=== PATIENT | female | born 1990 | race Caucasian/White ===

== ENCOUNTER 2017-10-06 08:07 | Emergency (ER) | payer OTHER ==
[~2017-10-06] VITALS: Ht 144.8 cm; Wt 59.0 kg
[2017-10-06] MEDS ORDERED: IBUP-1096 PO (08:22)
[2017-10-06 08:32] LABS: *BILIRUBIN,URIN NEGATIVE (NEGATIVE); *BLOOD, URINE Trace-intact (NEGATIVE); *CLARITY,URINE SLIGHTLY CLOUDY (CLEAR); *COLOR,URINE YELLOW (YELLOW); *KETONES,URINE NEGATIVE (NEGATIVE); *PROTEIN,URINE NEGATIVE (NEGATIVE); *UROBILINOGEN,URINE 0.2 E.U./dl (NORMAL); LEUKOCYTE ESTERASE ,URINE 3+ (NEGATIVE); NITRITE, URINE NEGATIVE (NEGATIVE); PH,URINE 5.5 (5.0-8.0); UGLUCOSE NEGATIVE (NEGATIVE)
[2017-10-06 08:37] LABS: BACTERIA,URINE FEW /HPF (NONE SEEN); SQUAMOUS EPITHELIAL CELL,UR MANY /HPF (NONE SEEN)
--- NOTE | 2017-10-06 08:41 | NUR ---
DIMPLE OBRIEN AT THE BEDSIDE FOR MSE.
[2017-10-06 08:59] LABS: BASOPHILS # (AUTO) 0.1 K/uL (0.0-8.0); BASOPHILS % (AUTO) 1.2 % (0.0-2.0); EOSINOPHILS % (AUTO) 0.7 % (0.0-7.0); HEMATOCRIT 37.4 % (31.2-41.9); HEMOGLOBIN 12.8 g/dL (10.9-14.3); MEAN CORPUSCULAR HEMOGLOBIN 30.9 uug (24.7-32.8); MEAN CORPUSCULAR HGB CONC 34 g/dL (32.3-35.6); MEAN CORPUSCULAR VOLUME 90.8 fL (75.5-95.3); MONOCYTES # (AUTO) 0.5 K/uL (2.0-10.0); MONOCYTES % (AUTO) 7.9 % (0.0-11.0); NEUTROPHILS # (AUTO) 3.2 K/uL (1.8-8.9); NEUTROPHILS % (AUTO) 55.2 % (38.5-71.5); PLATELET COUNT (AUTO) 234 K/uL (179-408); RED BLOOD CELL COUNT(AUTO) 4.12 MIL/uL (3.63-4.92); WHITE BLOOD COUNT (AUTO) 5.8 K/uL (3.8-11.8)
[2017-10-06 09:01] LABS: *URINE HCG, QUAL NEGATIVE (NEGATIVE)
[2017-10-06 09:14] LABS: BILIRUBIN,DIRECT 0.1 mg/dL (0.0-0.2); BILIRUBIN,TOTAL 0.4 mg/dL (0.2-1.0); CREATININE 0.6 mg/dL (0.6-1.3); POTASSIUM 3.8 mmol/L (3.5-5.1); TOTAL PROTEIN, SERUM 6.6 g/dL (6.4-8.2)
[2017-10-06] MEDS ORDERED: MAG HYDROX/AL HYDROX/SIMETH 30 ML LIQUID UDC PO ONE (09:15)
[2017-10-06] MEDS ORDERED: LIDOCAINE VISCUS 2% 15 ML UDC MM ONE (09:15)
[2017-10-06] MEDS ORDERED: MAG HYDROX/AL HYDROX/SIMETH 30 ML LIQUID UDC ONE (09:18)
[2017-10-06] MEDS ORDERED: LIDOCAINE VISCUS 2% 15 ML UDC ONE (09:18)
--- NOTE | 2017-10-06 09:35 | NUR ---
Pt resting in bed, speaking on the phone, NAD noted.
[2017-10-06] MEDS ORDERED: CEPHALEXIN MONOHYDRATE 500 MG CAPSULE PO ONE (10:15)
[2017-10-06] MEDS ORDERED: CEPHALEXIN MONOHYDRATE 500 MG CAPSULE ONE (10:18)
--- NOTE | 2017-10-06 10:35 | NUR ---
Pt able to tolorate PO intake. Denies N/V, pain.
[2017-10-06 10:53] VITALS: BP 120/82
--- NOTE | 2017-10-06 10:54 | NUR ---
Patient discharged to home in stable conditon. Written and verbal after care instructions given. Patient verbalizes understanding of instructions.
== END 2017-10-06 10:54 | disposition home or self-care (01) ==
LOC: ER 08:07
DX: K80.20 Calculus of gallbladder without cholecystitis without obstruction (principal); N39.0 Urinary tract infection, site not specified; Z88.5 Allergy status to narcotic agent
CPT/HCPCS: 36415; 83690; 84703; 85025; A4663

== ENCOUNTER 2017-10-12 07:05 | Inpatient (IN) | payer OTHER ==
[~2017-10-12] VITALS: Ht 157.5 cm; Wt 59.0 kg
[~2017-10-12 07:05] MED LIST: IBUP-1096 PO
[2017-10-12] MEDS ORDERED: IV NORMAL SALINE 500 ML BAG IV ONE (07:15)
[2017-10-12] MEDS ORDERED: ONDANSETRON 4 MG/2 ML VIAL IV ONE (07:15)
[2017-10-12] MEDS ORDERED: PIPERACILLIN SODIUM/TAZOBACTAM 3.375 G in IV DEXTROSE 5% 50 ML IV ONE (07:15)
[2017-10-12] MEDS ORDERED: PIPERACILLIN/TAZOBACTAM/D5W 50 ML IV ONE (07:51)
[2017-10-12] MEDS ORDERED: ONDANSETRON 4 MG/2 ML VIAL ONE (07:51)
[2017-10-12 08:04] LABS: BASOPHILS % (AUTO) 0.5 % (0.0-2.0); EOSINOPHILS % (AUTO) 0.8 % (0.0-7.0); HEMATOCRIT 39.4 % (31.2-41.9); HEMOGLOBIN 13.3 g/dL (10.9-14.3); LYMPHOCYTES # (AUTO) 2.2 K/uL (20.0-40.0); LYMPHOCYTES % (AUTO) 33.4 % (20.5-51.5); MEAN CORPUSCULAR HEMOGLOBIN 30.6 uug (24.7-32.8); MEAN CORPUSCULAR HGB CONC 34 g/dL (32.3-35.6); MEAN CORPUSCULAR VOLUME 90.9 fL (75.5-95.3); MONOCYTES # (AUTO) 0.5 K/uL (2.0-10.0); MONOCYTES % (AUTO) 7.6 % (0.0-11.0); NEUTROPHILS # (AUTO) 3.8 K/uL (1.8-8.9); NEUTROPHILS % (AUTO) 57.7 % (38.5-71.5); PLATELET COUNT (AUTO) 258 K/uL (179-408); RED BLOOD CELL COUNT(AUTO) 4.34 MIL/uL (3.63-4.92); WHITE BLOOD COUNT (AUTO) 6.6 K/uL (3.8-11.8)
[2017-10-12 08:05] LABS: *BILIRUBIN,URIN NEGATIVE (NEGATIVE); *BLOOD, URINE NEGATIVE (NEGATIVE); *CLARITY,URINE CLEAR (CLEAR); *COLOR,URINE YELLOW (YELLOW); *KETONES,URINE NEGATIVE (NEGATIVE); *PROTEIN,URINE NEGATIVE (NEGATIVE); *UROBILINOGEN,URINE 0.2 E.U./dl (NORMAL); LEUKOCYTE ESTERASE ,URINE 1+ (NEGATIVE); NITRITE, URINE NEGATIVE (NEGATIVE); PH,URINE 7.5 (5.0-8.0); UGLUCOSE NEGATIVE (NEGATIVE)
[2017-10-12 08:09] LABS: BACTERIA,URINE FEW /HPF (NONE SEEN); SQUAMOUS EPITHELIAL CELL,UR FEW /HPF (NONE SEEN)
[2017-10-12 08:11] LABS: CARBON DIOXIDE 30 mmol/L (21-32); CHLORIDE 104 mmol/L (98-107); CREATININE 0.5 mg/dL (0.6-1.3); GLUCOSE 99 mg/dL (74-106); POTASSIUM 3.4 mmol/L (3.5-5.1); UREA NITROGEN, BLOOD 15 mg/dL (7-18)
[2017-10-12 08:17] LABS: ALANINE AMINOTRANSFERASE 44 U/L (14-59); ALKALINE PHOSPHATASE 75 U/L (50-136); ASPARTATE AMINOTRANSFERASE 22 U/L (15-37); BILIRUBIN,DIRECT 0.1 mg/dL (0.0-0.2); BILIRUBIN,TOTAL 0.5 mg/dL (0.2-1.0); LIPASE 307 U/L (73-393); TOTAL PROTEIN, SERUM 7.6 g/dL (6.4-8.2)
[2017-10-12] MEDS ORDERED: ONDANSETRON 4 MG/2 ML VIAL IV PRN (08:45)
[2017-10-12] MEDS ORDERED: HYDROCODONE/APAP 5-325MG TABLET PO PRN (08:45)
[2017-10-12] MEDS ORDERED: ACETAMINOPHEN 325 MG TABLET PO PRN (08:45)
[2017-10-12] MEDS ORDERED: Z GUARD REMEDY PASTE 57 GM TUBE TOP PRN (08:45)
[2017-10-12] MEDS ORDERED: MAGNESIUM HYDROXIDE 30 ML LIQUID UDC PO PRN (08:45)
--- NOTE | 2017-10-12 09:30 | NUR ---
RECEIVED PATIENT FROM ER VIA [facility]. REPORT RECEIVED PRIOR FROM CYRUS BAINS. ADMITTED TO ROOM 203. MD AWARE PT IN UNIT. ADMISSION ORDERS NOTED AND CARRIED OUT. ADMISSION ASSESSMENTS TO BE COMPLETED. ORIENTED TO ROOM AND UNIT. WILL CONTINUE TO MONITOR CLOSELY.
--- NOTE | 2017-10-12 09:45 | NUR ---
SEEN AND EXAMINED BY KAREY WALLACE
[2017-10-12] MEDS: KETOROLAC TROMETHAMINE 30 MG INJ IVP PRN (10:15)
--- NOTE | 2017-10-12 10:30 | NUR ---
LAP CHOLECYSTECTOMY SCHEDULED AND TO BE DONE BY DR. RODRÍGUEZ AT 1100. CONSENT SIGNED BY PATIENT.
[2017-10-12] MEDS ORDERED: BUPIVACAINE/EPI PF 0.25% 30 ML VIAL ONE (10:35)
[2017-10-12] MEDS ORDERED: LIDOCAINE HCL 1% 20 ML VIAL ONE (10:35)
[2017-10-12] MEDS: CEFTRIAXONE 1 G in IV DEXTROSE 5% 50 ML IV SCH (11:06)
[2017-10-12] MEDS: IV NS 1000 ML 1,000 ML IV PRN (11:07)
--- NOTE | 2017-10-12 11:15 | NUR ---
SURGERY RESCHEDULED FOR TOMORROW AT 0730, PATIENT STATED SHE ATE A DONUT AND COFFEE PRIOR TO ARRIVING AT ER AROUND 0630. MICHELL CONTINUE TO MONITOR CLOSELY,.
--- NOTE | 2017-10-12 13:50 | NUR ---
INFORMED [facility] DIRECTOR ONCOLOGY THAT PATIENT WAS ASKING IF SHE CAN EAT. RECEIVED ORDERS FOR BLAND DIET AND NPO MIDNIGHT. ORDERS NOTED AND CARRIED OUT.
[2017-10-12] MEDS: POTASSIUM CHLORIDE 50 ML IV SCH ×2 (14:47→16:12)
--- NOTE | 2017-10-12 18:47 | NUR ---
Patient in bed no acute distress noted. independent w/ adls, brp. IV access on left AC #20 still intact and running NS @ 75 cc/hr infusing well. no complaints of abd pain, nausea/vomiting. BM x 2. will be NPO midnight. Scheduled for Kathryn Gottlieb maday at 0730.
--- NOTE | 2017-10-12 19:25 | NUR ---
RECEIVED PT AWAKE, ALERT,AND ORIENTEDX4.PT SHOWS NO SIGNS OF DISTRESS. PT IV INTACT AND PATENT.CALL LIGHT WITHIN REACH. WILL CONTINUE TO MONITOR.
[2017-10-12 19:30] VITALS: BP 122/74
--- NOTE | 2017-10-12 21:00 | NUR ---
PT ASKING IF HER CAN STAY FOR THE NIGHT. CHARGE NURSE AND GANG SAWYER AWARE OF THE SITUATION. THEY SAID THAT HER CAN JUST VISIT HER IN THE MORNING. PT UNDERSTAND. PT STABLE. WILL CONTINUE TO MONITOR.
[2017-10-13] MEDS: IV NS 1000 ML 1,000 ML IV PRN (03:14)
[2017-10-13 03:31] VITALS: BP 102/61
[2017-10-13] MEDS: KETOROLAC TROMETHAMINE 30 MG INJ IVP PRN ×2 (05:38→20:44)
--- NOTE | 2017-10-13 06:02 | NUR ---
PT SLEPT THROUGHOUT THE SHIFT. PT SHOWS NO SIGNS OF DISTRESS. PT IV INTACT AND PATENT. CALL LIGHT WITHIN REACH. BED ALARM ON AND IN LOW POSITION.PREOP CHECKLIST DONE.WILL ENDORSE ACCORDINGLY TO INCOMING NURSE.
[2017-10-13 06:58] LABS: BASOPHILS # (AUTO) 0.1 K/uL (0.0-8.0); BASOPHILS % (AUTO) 0.8 % (0.0-2.0); EOSINOPHILS # (AUTO) 0.1 K/uL (0.0-0.7); EOSINOPHILS % (AUTO) 0.9 % (0.0-7.0); HEMATOCRIT 38.6 % (31.2-41.9); HEMOGLOBIN 12.8 g/dL (10.9-14.3); LYMPHOCYTES # (AUTO) 2.2 K/uL (20.0-40.0); LYMPHOCYTES % (AUTO) 35.9 % (20.5-51.5); MEAN CORPUSCULAR HEMOGLOBIN 30.4 uug (24.7-32.8); MEAN CORPUSCULAR HGB CONC 33 g/dL (32.3-35.6); MEAN CORPUSCULAR VOLUME 91.5 fL (75.5-95.3); MONOCYTES # (AUTO) 0.4 K/uL (2.0-10.0); MONOCYTES % (AUTO) 6.9 % (0.0-11.0); NEUTROPHILS # (AUTO) 3.4 K/uL (1.8-8.9); NEUTROPHILS % (AUTO) 55.5 % (38.5-71.5); PLATELET COUNT (AUTO) 258 K/uL (179-408); RED BLOOD CELL COUNT(AUTO) 4.21 MIL/uL (3.63-4.92); WHITE BLOOD COUNT (AUTO) 6.2 K/uL (3.8-11.8)
[2017-10-13] MEDS ORDERED: BUPIVACAINE 0.25% 30 ML VIAL ONE (07:03)
[2017-10-13] MEDS ORDERED: LIDOCAINE 1%-EPI 1:100,000 20 ML VIAL ONE (07:03)
[2017-10-13 07:12] LABS: CARBON DIOXIDE 30 mmol/L (21-32); CHLORIDE 104 mmol/L (98-107); CHOLESTEROL 209 mg/dL (<200); CREATININE 0.5 mg/dL (0.6-1.3); GLUCOSE 89 mg/dL (74-106); HDL CHOLESTEROL 72 mg/dL (40-60); MAGNESIUM 1.9 mg/dL (1.8-2.4); PHOSPHOROUS 3.4 mg/dL (2.5-4.9); POTASSIUM 4.3 mmol/L (3.5-5.1); TRIGLYCERIDES 122 MG/DL (30-150); UREA NITROGEN, BLOOD 12 mg/dL (7-18)
[2017-10-13] MEDS ORDERED: PROPOFOL 200 MG/20 ML BOTTLE IV ONE (07:21)
[2017-10-13] MEDS ORDERED: IV NORMAL SALINE 1000 ML BAG IV ONE (07:21)
[2017-10-13] MEDS ORDERED: CEFAZOLIN 1 G VIAL MC ONE (07:21)
[2017-10-13] MEDS ORDERED: NEOSTIGMINE METHYLSULFATE 10 MG/10 ML VIAL IV ONE (07:21)
[2017-10-13] MEDS ORDERED: DEXAMETHASONE SOD PHOSPHATE 4 MG INJ IV ONE (07:21)
[2017-10-13] MEDS ORDERED: LIDOCAINE HCL 2% 20 ML VIAL MC ONE (07:21)
[2017-10-13] MEDS ORDERED: DESFLURANE ANESTHESIA GAS 240 ML BOTTLE IH ONE (07:21)
[2017-10-13] MEDS ORDERED: GLYCOPYRROLATE 0.2 MG/ML VIAL MC ONE (07:21)
[2017-10-13] MEDS ORDERED: METRONIDAZOLE 500 MG/NS 100 ML PIGGYBACK IV ONE (07:21)
[2017-10-13] MEDS ORDERED: KETOROLAC TROMETHAMINE 30 MG INJ IM ONE (07:21)
[2017-10-13] MEDS ORDERED: ONDANSETRON 4 MG/2 ML VIAL IV ONE (07:21)
[2017-10-13] MEDS ORDERED: HYDROMORPHONE 2 MG/1 ML DISP.SYRIN ONE (07:22)
[2017-10-13] MEDS ORDERED: MIDAZOLAM HCL 2 MG/2 ML VIAL ONE (07:22)
[2017-10-13] MEDS ORDERED: ROCURONIUM BROMIDE 50 MG/5 ML VIAL ONE (07:22)
--- NOTE | 2017-10-13 07:30 | NUR ---
PATIENT LEFT FOR PROCEDURE AT 715AM. STABLE CONDITION, NO S/S OF DISTRESS. WILL MONITOR CLOSELY WHEN BACK FROM PROCEDURE.
[2017-10-13] MEDS ORDERED: HYDROMORPHONE 1 MG/1 ML DISP.SYRIN IV PRN ×2 (08:30→09:15)
[2017-10-13] MEDS ORDERED: MEPERIDINE 50 MG/1 ML DISP.SYRIN ONE (09:37)
--- NOTE | 2017-10-13 10:30 | NUR ---
PATIENT RETURNED BACK ONTO FLOOR AT THIS TIME IN STABLE CONDITION, NO S/S OF DISTRESS. VITAL SIGNS STABLE. AFEBRILE. NO COMPLAINTS OF PAIN VERBALIZED BY PATIENT AT THIS TIME. ICE PLACED ON ABDOMINAL SURGICAL SITES. NO SIGNS OF INFECTION OR BLEEDING AT ABDOMINAL SURGICAL SITES. CONNECTED BACK ONTO FLUIDS. ABX ROCEPHIN WILL BE ADMINISTERED. WILL CONTINUE TO MONITOR THROUGHOUT SHIFT AND PROVIDE PAIN MANAGEMENT NEEDED.
[2017-10-13 10:35] VITALS: BP 107/60
[2017-10-13] MEDS: CEFTRIAXONE 1 G in IV DEXTROSE 5% 50 ML IV SCH (10:47)
[2017-10-13] MEDS ORDERED: HYDROMORPHONE 2 MG/1 ML DISP.SYRIN IV PRN (11:15)
[2017-10-13 16:00] VITALS: BP 111/66
--- NOTE | 2017-10-13 18:27 | NUR ---
PATIENT HAS NOT BEEN COMPLAINING OF PAIN. PATIENT HAS BEEN COMPLAINING ABDOMINAL DISCOMFORT - BLOATING, CONSTIPATION. ENCOURAGED PATIENT TO AMBULATE AROUND THE UNIT AND OFFERED PRUNE JUICE. PATIENT AMBULATED AROUND THE FLOOR - 2 LAPS. WILL ENCOURAGE PATIENT TO KEEP WALKING AROUND THE UNIT IF TOLERABLE. VERBALIZED TO PATIENT THAT PASSING GAS AND HAVING A BOWEL MOVEMENT IS IMPORTANT, ESPECIALLY POST-OPERATIVE. STABLE CONDITION AT THIS TIME. NO SIGNS OF BLEEDING, INFECTION AT SURGICAL INCISION SITES. UPPER/MEDIAL ABDOMEN SURGICAL SITE COVERED WITH SURGICAL DRESSING DUE TO SLIGHT LEAKAGE.
[2017-10-13 19:15] VITALS: BP 121/61
--- NOTE | 2017-10-13 19:20 | NUR ---
Received patient lying in bed. AAOx4. Denies any pain on incision site at this time. Dressing intact to 1 incision site. No drainage noted at this time. IV site on left AC intact and patent. IVF infusing. Needs assessed and attended to. Safety measure initiated and call ba within reach.
--- NOTE | 2017-10-13 22:00 | NUR ---
Pt awake and alert, appreciative of care. HS snacks provided. States adequate postop pain relief from Toradol med received earlier. Instructed to report all pain/discomfort episodes to RN, pt agreeable. Up ad denilson to bathroom to void. Activities well tolerated. All needs met. Nursing comfort measures observed at all times.
[2017-10-14] MEDS: IV NS 1000 ML 1,000 ML IV PRN (00:43)
[2017-10-14 03:25] VITALS: BP 106/55
--- NOTE | 2017-10-14 06:00 | NUR ---
Restful, comfortable night. Stable VS and rhythm. Continues to sleep. In no distress.
[2017-10-14 06:20] LABS: CREATININE 0.6 mg/dL (0.6-1.3); POTASSIUM 3.9 mmol/L (3.5-5.1)
[2017-10-14 06:45] LABS: BASOPHILS % (AUTO) 0.4 % (0.0-2.0); EOSINOPHILS % (AUTO) 0.1 % (0.0-7.0); LYMPHOCYTES # (AUTO) 2.2 K/uL (20.0-40.0); LYMPHOCYTES % (AUTO) 23.3 % (20.5-51.5); MEAN CORPUSCULAR HEMOGLOBIN 30.5 uug (24.7-32.8); MEAN CORPUSCULAR HGB CONC 34 g/dL (32.3-35.6); MEAN CORPUSCULAR VOLUME 90.8 fL (75.5-95.3); MONOCYTES # (AUTO) 0.6 K/uL (2.0-10.0); MONOCYTES % (AUTO) 6.8 % (0.0-11.0); NEUTROPHILS # (AUTO) 6.5 K/uL (1.8-8.9); NEUTROPHILS % (AUTO) 69.4 % (38.5-71.5); PLATELET COUNT (AUTO) 208 K/uL (179-408); RED BLOOD CELL COUNT(AUTO) 3.42 MIL/uL (3.63-4.92)
[2017-10-14 06:55] LABS: HEMATOCRIT 31.1 % (31.2-41.9); HEMOGLOBIN 10.5 g/dL (10.9-14.3); WHITE BLOOD COUNT (AUTO) 9.4 K/uL (3.8-11.8)
[2017-10-14 07:30] VITALS: BP 105/57
[2017-10-14] MEDS: KETOROLAC TROMETHAMINE 30 MG INJ IVP PRN (09:23)
[2017-10-14] MEDS: CEFTRIAXONE 1 G in IV DEXTROSE 5% 50 ML IV SCH (09:37)
[2017-10-14 10:00] VITALS: BP 103/63
[2017-10-14] MEDS ORDERED: CEPH-570 PO (12:15)
--- NOTE | 2017-10-14 13:50 | NUR ---
PATIENT IV DISCONTINUED. MAHAN GIVEN PER NURSING OFFICE FOR TRANSPORTATION. PATIENT INSISTED ON LOCAL TRANSPORTATION TO HUSBANDS WORK RATHER THAN LONG-TERM. STATES DRIVES AND WILL WAIT FOR HIM TO GET OUT OF WORK TO GO TO LONG-TERM WITH .
== END 2017-10-14 14:00 | disposition home or self-care (01) | DRG 263 ==
LOC: ER 07:10 → MED 08:58
PROVIDERS: ADMIT Internal Medicine; ATTEND Nurse Practitioner Acute Care
PROC: 0FB04ZX Excision of Liver, Percutaneous Endoscopic Approach, Diagnostic (ICD-10-PCS; principal; 2017-10-13 07:46)
PROC: 0FT44ZZ Resection of Gallbladder, Percutaneous Endoscopic Approach (ICD-10-PCS; principal; 2017-10-13 07:46)
DX: K80.10 Calculus of gallbladder with chronic cholecystitis without obstruction (principal); E83.51 Hypocalcemia; K76.89 Other specified diseases of liver; N39.0 Urinary tract infection, site not specified; Z88.5 Allergy status to narcotic agent; Z59.0 Homelessness; E87.6 Hypokalemia; E78.5 Hyperlipidemia, unspecified; R73.03 Prediabetes
CPT/HCPCS: 36415; 71045; 83605; 83690; 83735; 84100; 84703; 85025; 86850; 86900; 86901; 93005; A4663; J0690; J0696; J1100; J1170; J1885; J2175; J2250; J2405; J2543; J2710; J3480; J3490; J7030; J7060

== ENCOUNTER 2017-10-20 05:04 | Emergency (ER) | payer OTHER ==
[~2017-10-20] VITALS: Ht 144.8 cm; Wt 59.0 kg
[~2017-10-20 05:04] MED LIST changes: +CEPH-570 PO; -IBUP-1096 PO
--- NOTE | 2017-10-20 05:18 | NUR ---
DIMPLE OBRIEN at bedside for MSE.
[2017-10-20] MEDS ORDERED: HYDROCODONE/APAP 5-325MG TABLET PO ONE (05:30)
[2017-10-20] MEDS ORDERED: HYDROCODONE/APAP 5-325MG TABLET ONE (05:31)
[2017-10-20 05:50] LABS: BASOPHILS # (AUTO) 0.1 K/uL (0.0-8.0); BASOPHILS % (AUTO) 0.8 % (0.0-2.0); EOSINOPHILS # (AUTO) 0.1 K/uL (0.0-0.7); HEMATOCRIT 33.1 % (31.2-41.9); HEMOGLOBIN 11.2 g/dL (10.9-14.3); LYMPHOCYTES # (AUTO) 1.8 K/uL (20.0-40.0); LYMPHOCYTES % (AUTO) 25.4 % (20.5-51.5); MEAN CORPUSCULAR HEMOGLOBIN 30.6 uug (24.7-32.8); MEAN CORPUSCULAR HGB CONC 34 g/dL (32.3-35.6); MEAN CORPUSCULAR VOLUME 90.4 fL (75.5-95.3); MONOCYTES # (AUTO) 0.5 K/uL (2.0-10.0); MONOCYTES % (AUTO) 7.5 % (0.0-11.0); NEUTROPHILS # (AUTO) 4.7 K/uL (1.8-8.9); NEUTROPHILS % (AUTO) 65.3 % (38.5-71.5); PLATELET COUNT (AUTO) 259 K/uL (179-408); RED BLOOD CELL COUNT(AUTO) 3.66 MIL/uL (3.63-4.92); WHITE BLOOD COUNT (AUTO) 7.2 K/uL (3.8-11.8)
[2017-10-20 06:46] VITALS: BP 114/79
--- NOTE | 2017-10-20 06:46 | NUR ---
Patient discharged to home in stable conditon. Written and verbal after care instructions given. Patient verbalizes understanding of instructions.
[2017-10-21] MEDS ORDERED: IBUP-1955 PO (03:21)
== END 2017-10-20 06:47 | disposition home or self-care (01) ==
LOC: ER 05:06
DX: R10.13 Epigastric pain (principal); Z90.49 Acquired absence of other specified parts of digestive tract; Z88.5 Allergy status to narcotic agent
CPT/HCPCS: 36415; 85025; 99283; A4663

== ENCOUNTER 2017-10-20 23:14 | Inpatient (IN) | payer OTHER ==
[~2017-10-20] VITALS: Ht 144.8 cm; Wt 64.6 kg
[2017-10-21] MEDS ORDERED: ONDANSETRON 4 MG/2 ML VIAL IV ONE (00:15)
[2017-10-21] MEDS ORDERED: FENTANYL CITRATE 100 MCG/2 ML AMPUL IV ONE (00:15)
[2017-10-21] MEDS ORDERED: IV NORMAL SALINE 1000 ML BAG IV ONE (00:15)
[2017-10-21 00:30] LABS: BASOPHILS # (AUTO) 0.1 K/uL (0.0-8.0); BASOPHILS % (AUTO) 0.7 % (0.0-2.0); EOSINOPHILS # (AUTO) 0.1 K/uL (0.0-0.7); EOSINOPHILS % (AUTO) 1.1 % (0.0-7.0); HEMATOCRIT 36.5 % (31.2-41.9); HEMOGLOBIN 12.3 g/dL (10.9-14.3); LYMPHOCYTES # (AUTO) 2.7 K/uL (20.0-40.0); LYMPHOCYTES % (AUTO) 32.2 % (20.5-51.5); MEAN CORPUSCULAR HEMOGLOBIN 30.6 uug (24.7-32.8); MEAN CORPUSCULAR HGB CONC 34 g/dL (32.3-35.6); MEAN CORPUSCULAR VOLUME 90.9 fL (75.5-95.3); MONOCYTES # (AUTO) 0.7 K/uL (2.0-10.0); MONOCYTES % (AUTO) 7.9 % (0.0-11.0); NEUTROPHILS # (AUTO) 4.8 K/uL (1.8-8.9); NEUTROPHILS % (AUTO) 58.1 % (38.5-71.5); PLATELET COUNT (AUTO) 304 K/uL (179-408); RED BLOOD CELL COUNT(AUTO) 4.02 MIL/uL (3.63-4.92); WHITE BLOOD COUNT (AUTO) 8.2 K/uL (3.8-11.8)
[2017-10-21 00:44] LABS: CREATININE 0.9 mg/dL (0.6-1.3); POTASSIUM 3.8 mmol/L (3.5-5.1)
[2017-10-21] MEDS ORDERED: FENTANYL CITRATE 100 MCG/2 ML AMPUL ONE (00:44)
[2017-10-21] MEDS ORDERED: ONDANSETRON 4 MG/2 ML VIAL ONE (00:45)
[2017-10-21 00:47] LABS: *BILIRUBIN,URIN NEGATIVE (NEGATIVE); *BLOOD, URINE Trace-intact (NEGATIVE); *CLARITY,URINE HAZY (CLEAR); *COLOR,URINE YELLOW (YELLOW); *KETONES,URINE NEGATIVE (NEGATIVE); *PROTEIN,URINE NEGATIVE (NEGATIVE); *UROBILINOGEN,URINE 0.2 E.U./dl (NORMAL); LEUKOCYTE ESTERASE ,URINE 3+ (NEGATIVE); NITRITE, URINE NEGATIVE (NEGATIVE); PH,URINE 5.5 (5.0-8.0); UGLUCOSE NEGATIVE (NEGATIVE)
[2017-10-21 00:49] LABS: BILIRUBIN,DIRECT 0.1 mg/dL (0.0-0.2); BILIRUBIN,TOTAL 0.3 mg/dL (0.2-1.0); TOTAL PROTEIN, SERUM 7.5 g/dL (6.4-8.2)
[2017-10-21 01:18] LABS: BACTERIA,URINE MODERATE /HPF (NONE SEEN); SQUAMOUS EPITHELIAL CELL,UR MODERATE /HPF (NONE SEEN); TRICHOMONAS,URINE MODERATE /HPF (NONE SEEN); WBC,URINE 80-100 /HPF (0-3)
[2017-10-21] MEDS ORDERED: IBUP-1955 PO (03:21)
[2017-10-21] MEDS ORDERED: GENTAMICIN SULFATE 20 MG/2 ML VIAL IV ONE (03:30)
[2017-10-21] MEDS ORDERED: CEFTRIAXONE 1 G in IV DEXTROSE 5% 50 ML IV ONE (03:30)
[2017-10-21] MEDS ORDERED: GENTAMICIN SULFATE 80 MG/2 ML VIAL ONE (03:48)
[2017-10-21] MEDS ORDERED: CEFTRIAXONE 1 G VIAL ONE (04:20)
[2017-10-21 04:45] VITALS: BP 100/55
[2017-10-21] MEDS ORDERED: ONDANSETRON 4 MG/2 ML VIAL IV PRN (04:45)
[2017-10-21] MEDS ORDERED: Z GUARD REMEDY PASTE 57 GM TUBE TOP PRN (04:45)
[2017-10-21] MEDS ORDERED: ACETAMINOPHEN 325 MG TABLET PO PRN (04:45)
[2017-10-21] MEDS ORDERED: HYDROCODONE/APAP 5-325MG TABLET PO PRN (04:45)
[2017-10-21] MEDS ORDERED: HYDROMORPHONE 1 MG/1 ML DISP.SYRIN IV PRN (04:45)
[2017-10-21] MEDS ORDERED: ZOLPIDEM 5 MG TABLET PO PRN (04:45)
[2017-10-21] MEDS ORDERED: MAGNESIUM HYDROXIDE 30 ML LIQUID UDC PO PRN (04:45)
[2017-10-21] MEDS ORDERED: PIPERACILLIN/TAZOBACTAM/D5W 50 ML IV ONE (05:39)
[2017-10-21] MEDS: IV NS 1000 ML 1,000 ML IV PRN (05:41)
[2017-10-21] MEDS: PIPERACILLIN/TAZOBACTAM/D5W 50 ML IV SCH ×4 (05:41→23:59)
[2017-10-21] MEDS ORDERED: HYDROMORPHONE 2 MG/1 ML DISP.SYRIN IV PRN (11:15)
[2017-10-21 12:00] VITALS: BP 106/65
[2017-10-21 16:00] VITALS: BP 107/64
[2017-10-21 20:03] VITALS: BP 105/64
[2017-10-22 04:16] VITALS: BP 111/60
[2017-10-22] MEDS: PIPERACILLIN/TAZOBACTAM/D5W 50 ML IV SCH (05:30)
[2017-10-22] MEDS: IV NS 1000 ML 1,000 ML IV PRN (05:46)
[2017-10-22 07:09] LABS: BASOPHILS % (AUTO) 0.6 % (0.0-2.0); EOSINOPHILS # (AUTO) 0.1 K/uL (0.0-0.7); EOSINOPHILS % (AUTO) 1.3 % (0.0-7.0); HEMATOCRIT 36.1 % (31.2-41.9); LYMPHOCYTES # (AUTO) 1.6 K/uL (20.0-40.0); LYMPHOCYTES % (AUTO) 27.4 % (20.5-51.5); MEAN CORPUSCULAR HEMOGLOBIN 29.8 uug (24.7-32.8); MEAN CORPUSCULAR HGB CONC 33 g/dL (32.3-35.6); MEAN CORPUSCULAR VOLUME 89.8 fL (75.5-95.3); MONOCYTES # (AUTO) 0.5 K/uL (2.0-10.0); MONOCYTES % (AUTO) 8.1 % (0.0-11.0); NEUTROPHILS # (AUTO) 3.7 K/uL (1.8-8.9); NEUTROPHILS % (AUTO) 62.6 % (38.5-71.5); PLATELET COUNT (AUTO) 296 K/uL (179-408); RED BLOOD CELL COUNT(AUTO) 4.02 MIL/uL (3.63-4.92)
[2017-10-22 07:31] LABS: CREATININE 0.6 mg/dL (0.6-1.3); MAGNESIUM 1.9 mg/dL (1.8-2.4); PHOSPHOROUS 2.8 mg/dL (2.5-4.9); POTASSIUM 3.9 mmol/L (3.5-5.1)
[2017-10-22] MEDS ORDERED: PANTOPRAZOLE SODIUM 40 MG VIAL IV SCH (09:00)
== END 2017-10-22 11:30 | disposition home or self-care (01) | DRG 463 ==
LOC: ER 23:16 → MED 10-21 04:00
PROVIDERS: ADMIT Hospitalist; ATTEND Nurse Practitioner Acute Care
DX: N39.0 Urinary tract infection, site not specified (principal); N17.0 Acute kidney failure with tubular necrosis; Z90.49 Acquired absence of other specified parts of digestive tract; Z59.0 Homelessness; Z88.6 Allergy status to analgesic agent; R73.03 Prediabetes
CPT/HCPCS: 36415; 70030-TC; 71045; 76700; 78445; 83605; 83690; 83735; 84100; 84703; 85025; 85730; 87040; 87086; A4663; A9537; C9113; J0696; J1580; J2405; J2543; J3010; J7030; J7060

== ENCOUNTER 2017-11-18 02:38 | Emergency (ER) | payer OTHER ==
[~2017-11-18] VITALS: Ht 144.8 cm; Wt 68.0 kg
[~2017-11-18 02:38] MED LIST changes: -CEPH-570 PO; +IBUP-1955 PO
--- NOTE | 2017-11-18 03:13 | NUR ---
Dr. Fuentes at bedside for MSE.
[2017-11-18] MEDS ORDERED: KETOROLAC TROMETHAMINE 30 MG INJ IVP ONE (03:30)
[2017-11-18] MEDS ORDERED: IV NORMAL SALINE 1000 ML BAG IV ONE (03:30)
[2017-11-18] MEDS ORDERED: KETOROLAC TROMETHAMINE 30 MG INJ ONE (03:32)
--- NOTE | 2017-11-18 03:35 | NUR ---
Xray at bedside.
[2017-11-18 03:42] LABS: BASOPHILS % (AUTO) 0.5 % (0.0-2.0); EOSINOPHILS # (AUTO) 0.1 K/uL (0.0-0.7); EOSINOPHILS % (AUTO) 1.1 % (0.0-7.0); HEMATOCRIT 38.5 % (31.2-41.9); HEMOGLOBIN 13.1 g/dL (10.9-14.3); LYMPHOCYTES # (AUTO) 1.8 K/uL (20.0-40.0); LYMPHOCYTES % (AUTO) 23.9 % (20.5-51.5); MEAN CORPUSCULAR HEMOGLOBIN 30.2 uug (24.7-32.8); MEAN CORPUSCULAR HGB CONC 34 g/dL (32.3-35.6); MONOCYTES # (AUTO) 0.6 K/uL (2.0-10.0); MONOCYTES % (AUTO) 8.1 % (0.0-11.0); NEUTROPHILS # (AUTO) 4.9 K/uL (1.8-8.9); NEUTROPHILS % (AUTO) 66.4 % (38.5-71.5); PLATELET COUNT (AUTO) 245 K/uL (179-408); RED BLOOD CELL COUNT(AUTO) 4.33 MIL/uL (3.63-4.92); WHITE BLOOD COUNT (AUTO) 7.4 K/uL (3.8-11.8)
[2017-11-18 03:56] LABS: CREATININE 0.6 mg/dL (0.6-1.3); POTASSIUM 3.4 mmol/L (3.5-5.1)
[2017-11-18 04:02] LABS: BILIRUBIN,DIRECT 0.1 mg/dL (0.0-0.2); BILIRUBIN,TOTAL 0.3 mg/dL (0.2-1.0); TOTAL PROTEIN, SERUM 7.1 g/dL (6.4-8.2)
--- NOTE | 2017-11-18 04:25 | NUR ---
Pt states pain on left shoulder still the same. MD notified.
--- NOTE | 2017-11-18 05:57 | NUR ---
Patient discharged to home in stable conditon. Written and verbal after care instructions given. Patient verbalizes understanding of instructions. Pt ambulated out of ER with steady gait, no acute signs of distress, VSS, all belongings taken, IV site discontinued.
[2017-11-18 06:00] VITALS: BP 125/66
== END 2017-11-18 06:01 | disposition home or self-care (01) ==
LOC: ER 02:45
DX: I88.9 Nonspecific lymphadenitis, unspecified (principal); M79.622 Pain in left upper arm; Z88.5 Allergy status to narcotic agent
CPT/HCPCS: 36415; 70030-TC; 71045; 73060; 85025; 85730; 93005; A4663; J1885; J7030